=== PATIENT | female | born 1985 ===

== ENCOUNTER 2017-08-29 21:26 | Emergency (ER) | payer BC, OTHER ==
[~2017-08-29] VITALS: Ht 167.6 cm; Wt 71.8 kg
[2017-08-29 21:31] VITALS: TEMP 36.8; Ht 167.6 cm; Wt 71.8 kg
[2017-08-29 22:37] LABS: BASO % 0.3 %; BASO ABS # 0.02 K/uL (0-0.2); COMPLETE YES; EOS % 0.9 %; HEMATOCRIT 36.1 % (37-47); IG% 0.1 %; LYMPH % 32.2 %; LYMPH ABS # 2.56 K/uL (1.2-3.4); MEAN CELL VOLUME 83.4 fL (80-100); MEAN CORPUSCULAR HEMOGLOBIN 27.3 pg (25-34); MEAN CORPUSCULAR HGB CONC 32.7 g/dl (32-36); MEAN PLATELET VOLUME 9.9 fL (7.4-10.4); MONO % 9.6 %; NEUT % 56.9 %; PLATELET COUNT 312 K/uL (130-400); RED BLOOD COUNT 4.33 M/uL (4.2-5.4); WHITE BLOOD COUNT 7.95 K/uL (4.8-10.8)
[2017-08-29 22:40] LABS: URINE APPEARANCE CLEAR (CLEAR); URINE BILIRUBIN NEG (NEG); URINE COLOR YELLOW; URINE EPITHELIAL CELL AUTO 20-30 /lpf (0-5); URINE NITRITE NEG (NEG); URINE SPECIFIC GRAVITY 1.021 (1.000-1.030); UROBILINOGEN NEG (NEG)
[2017-08-29 22:42] LABS: MANUAL MICROSCOPIC REQUIRED? NO; REVIEW REQ? NO
[2017-08-29 22:56] LABS: BUN/CREATININE RATIO 18.3 (10-20); CALCIUM 9.6 mg/dl (8.5-10.1); CREATININE 0.58 mg/dl (0.60-1.20); POTASSIUM 3.6 mmol/L (3.5-5.1)
[2017-08-30 00:31] VITALS: BP 118/70; PULSE 72; O2SAT 98
--- NOTE | 2017-08-30 01:50 | EMERGENCY ROOM VISIT NOTE ---
History Report prepared by Orlin: Nayely Harris Under the Supervision of: Dr. Alfredo Davies M.D. 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 The patient states that she is approximately 4-5 weeks . Her LNMP was 07/04/17. She is /A0. She developed some vaginal bleeding about 1 hour ago. She states that she had some lower abdominal cramping at that time which has resolved. She rates her pain at that time as a 2/10 in severity. She did not have problems with HTN with her previous . The patient denies headaches, fevers, vomiting, urinary symptoms, and pain or swelling in her legs. She denies any personal history of miscarriage or ectopic . Her blood type is AB+. 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 Review of Systems See HPI for pertinent positives & negatives. A total of 10 systems reviewed and were otherwise negative. Past Medical & Surgical Medical Problems: (1) No significant past medical history Family History No pertinent history stated. Social History Smoking Status: Never Smoker Alcohol Use: none Marital Status: Housing Status: lives with family Current/Historical Medications No Active Prescriptions or Reported Meds Allergies Coded Allergies: No Known Allergies (Unverified , 08/29/17) Physical Exam Vital Signs Date Time Temp Pulse Resp B/P (MAP) Pulse Ox O2 Delivery O2 Flow Rate FiO2 08/30/17 00:31 72 18 118/70 98 08/29/17 23:32 71 18 109/61 98 Room Air 08/29/17 22:19 88 16 126/78 100 Room Air 08/29/17 21:31 36.8 93 18 147/82 100 Room Air Physical Exam Constitutional: Vital signs reviewed. Eyes: Pupils are equal round reactive to light. Conjunctiva are noninjected. ENT: Pharynx is clear without erythema or exudate. Mucous membranes are moist. Neck supple without meningeal signs. Respiratory: Clear to auscultation bilaterally. Breath sounds are equal bilaterally. Cardiovascular: Regular rate and rhythm. No rubs or gallops. GI: Soft, nondistended and nontender. Bowel sounds are present. Musculoskeletal: No peripheral edema. No lower extremity tenderness. Integumentary: No cyanosis. Neurological: The patient is awake and alert. No focal deficits. Psychiatric: Normal affect. Medical Decision & Procedures ER Provider Diagnostic Interpretation: Radiology results as stated below per my review and the radiologist's interpretation: US OB/ENDOVAG: IUP measuring 7 weeks 1 day with heart rate of 138 beats/minute. No subchorionic hemorrhage. Probable small uterine fibroid. Left corpus luteum cyst. Radiologist: Qing Finnegan MD Laboratory Results 08/29/17 22:21 Red Blood Count 4.33, Mean Corpuscular Volume 83.4, Mean Corpuscular Hemoglobin 27.3, Mean Corpuscular Hemoglobin Concent 32.7, Mean Platelet Volume 9.9, Neutrophils (%) (Auto) 56.9, Lymphocytes (%) (Auto) 32.2, Monocytes (%) (Auto) 9.6, Eosinophils (%) (Auto) 0.9, Basophils (%) (Auto) 0.3, Neutrophils # (Auto) 4.53, Lymphocytes # (Auto) 2.56, Monocytes # (Auto) 0.76, Eosinophils # (Auto) 0.07, Basophils # (Auto) 0.02 08/29/17 22:21 Test 08/29/17 22:21 08/29/17 22:25 White Blood Count 7.95 K/uL (4.8-10.8) Red Blood Count 4.33 M/uL (4.2-5.4) Hemoglobin 11.8 g/dL (12.0-16.0) Hematocrit 36.1 % (37-47) Mean Corpuscular Volume 83.4 fL (80-100) Mean Corpuscular Hemoglobin 27.3 pg (25-34) Mean Corpuscular Hemoglobin Concent 32.7 g/dl (32-36) Platelet Count 312 K/uL (130-400) Mean Platelet Volume 9.9 fL (7.4-10.4) Neutrophils (%) (Auto) 56.9 % Lymphocytes (%) (Auto) 32.2 % Monocytes (%) (Auto) 9.6 % Eosinophils (%) (Auto) 0.9 % Basophils (%) (Auto) 0.3 % Neutrophils # (Auto) 4.53 K/uL (1.4-6.5) Lymphocytes # (Auto) 2.56 K/uL (1.2-3.4) Monocytes # (Auto) 0.76 K/uL (0.11-0.59) Eosinophils # (Auto) 0.07 K/uL (0-0.5) Basophils # (Auto) 0.02 K/uL (0-0.2) RDW Standard Deviation 39.8 fL (36.4-46.3) RDW Coefficient of Variation 13.1 % (11.5-14.5) Immature Granulocyte % (Auto) 0.1 % Immature Granulocyte # (Auto) 0.01 K/uL (0.00-0.02) Anion Gap 7.0 mmol/L (3-11) Est Creatinine Clear Calc Drug Dose 142.6 ml/min Estimated GFR () 142.4 Estimated GFR (Non- 122.8 BUN/Creatinine Ratio 18.3 (10-20) Calcium Level 9.6 mg/dl (8.5-10.1) Human Chorionic Gonadotropin, Quant 9497 mIU/mL Urine Color YELLOW Urine Appearance CLEAR (CLEAR) Urine pH 5.0 (4.5-7.5) Urine Specific [place] 1.021 (1.000-1.030) Urine Protein NEG (NEG) Urine Glucose (UA) NEG (NEG) Urine Ketones NEG (NEG) Urine Occult Blood 2+ (NEG) Urine Nitrite NEG (NEG) Urine Bilirubin NEG (NEG) Urine Urobilinogen NEG (NEG) Urine Leukocyte Esterase MODERATE (NEG) Urine WBC (Auto) 10-30 /hpf (0-5) Urine RBC (Auto) 10-30 /hpf (0-4) Urine Hyaline Casts (Auto) 1-5 /lpf (0-5) Urine Epithelial Cells (Auto) 20-30 /lpf (0-5) Urine Bacteria (Auto) NEG (NEG) Laboratory results as reviewed by me. ED Course 2206: The patient was evaluated in room B6. A complete history and physical exam was performed. 0002: I reassessed the patient at this time. She is resting comfortably and continues to deny urinary symptoms. I discussed the results and treatment plan with the patient. I answered all pertaining questions that she had. She expressed understanding and verbalized agreement. The patient will be discharged home. Medical Decision This is a 32-year-old female who presents with vaginal bleeding and high blood pressure. Differential diagnosis includes threatened miscarriage, ectopic , uterine fibroid, preeclampsia, ovarian cyst. I did perform a limited focused review of portions of the patient's old chart on the electronic medical record. The patient has had no prior visits to this hospital. I did evaluate the patient as noted above. IV access was established. I did order and personally review the patient's urinalysis as described above. He denies any urinary symptoms. I did send a urine culture due to the equivocal results. I did order and review the patient's blood work as noted in the electronic medical record. She is AB+. I did order an ultrasound of the pelvis. I did review the images myself as well as the radiology report as described above. There is a live intrauterine with a heart rate of 138. No subchorionic hematoma was noted. I did discuss the test results with the patient. 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 Her blood pressure improved while she was here. It was likely situationally high. She was discharged in good condition. Medication Reconcilliation Current Medication List: was personally reviewed by me Blood Pressure Screening Patient's blood pressure: Elevated blood pressure Blood pressure disposition: Elevated BP felt to be situational, Referred to PCP Impression Primary Impression: Threatened miscarriage Scribe Attestation The scribe's documentation has been prepared under my direct and personally reviewed by me in its entirety. I confirm that the note above accurately reflects all work, treatment, procedures, and medical decision making performed by me. Departure Information Dispostion Home / Self-Care Prescriptions No Active Prescriptions or Reported Meds Referrals No Doctor, Assigned Forms HOME CARE DOCUMENTATION FORM, IMPORTANT VISIT INFORMATION, WORK / SCHOOL INSTRUCTIONS Patient Instructions ED Miscarriage Poss, My [facility] Additional Instructions You have been examined and treated today on an emergency basis only. This is not a substitute for, or an effort to provide, complete comprehensive medical care. It is impossible to recognize and treat all injuries or illnesses in a single emergency department visit. 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 Call as soon as possible for an appointment. Return for worsening symptoms or if you develop fever, vomiting, abdominal pain or any other concerning symptoms.
--- NOTE | 2017-08-30 08:23 | DIAGNOSTIC IMAGING REPORT ---
ECTOPIC HISTORY: 32 years-old Female vag bleed 8 weeks acute vaginal bleeding with COMPARISON: None available TECHNIQUE: Multiple real-time sonographic images of the deep pelvic structures were obtained transabdominally and transvaginally assessing grayscale appearance, color and spectral analysis with M-mode analysis. FINDINGS: TRANSABDOMINAL: Intrauterine gestational sac and yolk sac are noted. Yolk sac measures 0.5 cm. Gestational sac measures 1.9 cm correlating with estimated gestational age of 6 weeks and 2 days. Prosperity-rump length measures 0.95 cm, correlating with estimated gestational age of 7 weeks and 0 days. TRANSVAGINAL: Anteflexed gravid uterus is noted with single living intrauterine gestation. Yolk sac measures 0.5 cm, pole measures 1.1 cm correlating with estimated gestational age of 7 weeks and 1 day. No subchronic hematoma identified. heart rate is measured at 137 bpm. Probable fibroid of the left uterus appears intramural measuring up to 0.9 cm. Right ovary measures 2.8 x 0.9 x 0.7 cm and appears unremarkable with arterial inflow documented. The left ovary measures 2.9 x 1.3 x 2.2 cm and also demonstrates arterial inflow. There is a hypoechoic structure with peripheral vascularity involving the left ovary suggesting a corpus luteum measuring up to 1.7 cm in greatest dimension. IMPRESSION: 1. Single living intrauterine gestation with estimated gestational age by crown-rump length of 7 weeks and 1 day. heart rate is measured at 137 bpm. 2. Left corpus luteum. Right ovary is unremarkable. 3. Probable intramural fibroid of the left uterus, 0.9 cm. The above report was generated using voice recognition software. It may contain grammatical, syntax or spelling errors. Electronically signed by: Armond Verdugo M.D. 08/30/2017 7:01 AM Dictated Date/Time: 08/30/2017 6:57 AM
== END 2017-08-30 00:32 | disposition home or self-care (01) ==
LOC: C.EDB 21:28
DX: O20.0 Threatened abortion (principal)